=== PATIENT | female | born 1970 | race Caucasian/White ===

== ENCOUNTER 2020-05-04 15:05 | Emergency (ER) | payer SELFPAY ==
[~2020-05-04] VITALS: Ht 157.5 cm; Wt 63.5 kg
--- NOTE | 2020-05-04 15:06 | NUR ---
PT AL DONALDS TO TENT
[2020-05-04 15:13] VITALS: BP 105/72
--- NOTE | 2020-05-04 15:20 | NUR ---
49 Y/O FEMALE C/O BODY ACHES/ NAUSEA/ SUBJECTIVE FEVER/ COUGH X2 DAYS. DENIES SOB/CP. RESP EVEN AND UNLABORED. LUNG SOUNDS CLEAR IN BILAT LOBES. PT STATES SHE HAD ONE EPISODE OF VOMITING WITH STREAKS OF BLOOD. AFEBRILE AT THIS TIME. PT IS ABLE TO AMBULATE TO TENT. COUGH IS NON PRODUCTIVE. AAOX4. PMH: ANEMIA NKA
[2020-05-04] MEDS ORDERED: ONDANSETRON 4 MG ODT PO ONE (15:35)
[2020-05-04 15:57] VITALS: BP 105/72
== END 2020-05-04 17:10 | disposition home or self-care (01) ==
LOC: MED 15:05 → EEVIPCON 15:05 → MED 17:10
DX: U07.1 COVID-19 (principal); R05 Cough; M79.10 Myalgia, unspecified site; R11.2 Nausea with vomiting, unspecified
CPT/HCPCS: 36415; 99283; C9803-CS; Q0162; U0003-CS